=== PATIENT | female | born 1935 | race Caucasian/White ===

== ENCOUNTER 2020-12-03 19:38 | Emergency (ER) | payer MEDICARE, OTHER ==
[~2020-12-03 19:38] MED LIST: BENICAR *OUT OF20 MG PO; BYSTOLIC10 MG PO; CEFDINIR300 MG PO; CYMBALTA 30MG C30 MG PO; GLUCOTROL5 MG PO; HYDRALAZINE25 MG PO; LIPITOR40 MG PO; MOBIC7.5 MG PO; NEURONTIN100 MG PO; PLAVIX75 MG PO; PRILOSEC20 MG PO; SYNTHROID50 MCG PO; TOPROL XL 50 MG50 MG PO
[2020-12-03 20:30] LABS: BASOPHIL 0.5 % (0-2); EOSINOPHIL 1.4 % (0-7); HCT 36.4 % (37.0-47.0); HGB 11.3 g/dl (12.5-16.0); LYMPHOCYTE 16.7 % (15-48); MCH 33.3 pg (25.0-31.0); MCV 107.4 fL (78.0-100.0); MONOCYTE 7.7 % (0-12); MPV 10.6 fL (6.0-9.5); NEUTROPHIL 73.2 % (41-80); NRBC 0; PLT 207 K/uL (150-400); RBC 3.39 M/uL (4.20-5.40); RDW 11.6 % (11.5-14.0)
[2020-12-03 20:40] LABS: INR 0.98 (0.9-1.2); PROTHROMBIN TIME 12.3 SECONDS (11.4-13.6); PTT 28.1 SECONDS (22.2-34.7)
[2020-12-03 20:46] LABS: BUN/CREAT RATIO (CALC) 16.3 RATIO; CREATININE 2.15 mg/dL (0.51-0.95); POTASSIUM 4.3 mmol/L (3.5-5.1)
[2020-12-03] MEDS ORDERED: NORCO 5-325 TA1 EACH PO (22:13)
== END 2020-12-03 22:45 | disposition home or self-care (01) ==
LOC: FER 19:38
PROVIDERS: Emergency Medicine Emergency Medical Services
DX: S51.812A Laceration without foreign body of left forearm, initial encounter (principal); I10 Essential (primary) hypertension; I25.2 Old myocardial infarction; E11.9 Type 2 diabetes mellitus without complications; E03.9 Hypothyroidism, unspecified; Z87.442 Personal history of urinary calculi; Z79.02 Long term (current) use of antithrombotics/antiplatelets; Z88.8 Allergy status to other drugs, medicaments and biological substances; Z79.899 Other long term (current) drug therapy; Z79.82 Long term (current) use of aspirin; Z79.84 Long term (current) use of oral hypoglycemic drugs; W18.09XA Striking against other object with subsequent fall, initial encounter
CPT/HCPCS: 36415; 70450; 72125; 73090; 73110; 73130; 80048; 85025; 85610; 85730

== ENCOUNTER 2021-10-26 01:07 | Inpatient (IN) | payer MEDICARE, OTHER ==
[~2021-10-26] VITALS: Ht 163 cm; Wt 60.0 kg
[~2021-10-26 01:07] MED LIST changes: +NORCO 5-325 TA1 EACH PO
[2021-10-26 02:52] LABS: BASOPHIL 0.2 % (0-2); EOSINOPHIL 0.7 % (0-7); HCT 35.6 % (37.0-47.0); HGB 11.4 g/dl (12.5-16.0); LYMPHOCYTE 8.6 % (15-48); MCH 33.9 pg (25.0-31.0); MPV 10.8 fL (6.0-9.5); NEUTROPHIL 85.9 % (41-80); NRBC 0; PLT 170 K/uL (150-400); RBC 3.36 M/uL (4.20-5.40); RDW 12.4 % (11.5-14.0); WBC 12.4 K/uL (4.0-10.5)
[2021-10-26 03:02] LABS: INR 0.9 (0.9-1.2); PROTHROMBIN TIME 11.6 SECONDS (11.8-13.4); PTT 23.1 SECONDS (24.4-34.7)
[2021-10-26 03:11] LABS: BUN/CREAT RATIO (CALC) 22.7 RATIO; CREATININE 2.29 mg/dL (0.51-0.95); POTASSIUM 4.6 mmol/L (3.5-5.1)
[2021-10-26 06:52] LABS: BILIRUBIN NEGATIVE (NEGATIVE); BLOOD NEGATIVE Ery/uL (NEGATIVE); CLARITY CLEAR (CLEAR); COLOR YELLOW (YELLOW); GLUCOSE (U) NORMAL (NORMAL); LEUKOCYTES TRACE Leu/uL (NEGATIVE); NITRITE NEGATIVE (NEGATIVE); PROTEIN NEGATIVE (NEGATIVE); UROBILINOGEN 0.2 mg/dL (0.2-1.0); pH 5.5 (5.0-9.0)
[2021-10-26] MEDS ORDERED: ACETAMINOPHEN500 M1 PO (16:29)
[2021-10-26] MEDS ORDERED: ASPIRIN EC81 MG PO (16:30)
[2021-10-26] MEDS ORDERED: CYMBALTA 30MG C30 MG PO (16:33)
[2021-10-26] MEDS ORDERED: LASIX20 MG PO (16:34)
[2021-10-26] MEDS ORDERED: PRILOSEC20 MG PO (16:38)
[2021-10-26] MEDS ORDERED: DITROPAN5 MG PO (16:39)
[2021-10-26] MEDS ORDERED: CLARITIN10 MG PO (16:39)
[2021-10-26] MEDS ORDERED: TOPROL XL 50 MG50 MG PO (16:40)
[2021-10-26] MEDS ORDERED: AZO URINARY P99.5 MG PO (16:41)
--- NOTE | 2021-10-26 16:49 | NUR ---
NOTIFIED OF PATIENT ELEVATED BP. PATIENT HAS NOT TAKEN BP MEDICATIONS TODAY.
[2021-10-27 06:32] LABS: HCT 35.5 % (37.0-47.0); HGB 11.2 g/dl (12.5-16.0); MCH 34.3 pg (25.0-31.0); MCHC 31.5 g/dL (32.0-36.0); MCV 108.6 fL (78.0-100.0); MPV 10.8 fL (6.0-9.5); RBC 3.27 M/uL (4.20-5.40); RDW 12.5 % (11.5-14.0); RETICULOCYTE COUNT 1.8 % (1.0-2.0); WBC 8.4 K/uL (4.0-10.5)
[2021-10-27 06:47] LABS: IRON % SATURATION 11.4 %SAT (20-50)
[2021-10-27 07:23] LABS: BUN/CREAT RATIO (CALC) 17.7 RATIO; CREATININE 2.32 mg/dL (0.51-0.95); POTASSIUM 4.8 mmol/L (3.5-5.1)
[2021-10-28 07:00] LABS: BASOPHIL 0.5 % (0-2); EOSINOPHIL 4.4 % (0-7); HCT 33.1 % (37.0-47.0); HGB 10.5 g/dl (12.5-16.0); LYMPHOCYTE 14.3 % (15-48); MCH 34.5 pg (25.0-31.0); MCHC 31.7 g/dL (32.0-36.0); MCV 108.9 fL (78.0-100.0); MONOCYTE 6.2 % (0-12); MPV 10.8 fL (6.0-9.5); NEUTROPHIL 74.1 % (41-80); NRBC 0; PLT 147 K/uL (150-400); RBC 3.04 M/uL (4.20-5.40); RDW 12.6 % (11.5-14.0); WBC 6.6 K/uL (4.0-10.5)
[2021-10-28 07:20] LABS: BUN/CREAT RATIO (CALC) 16.9 RATIO; CREATININE 2.42 mg/dL (0.51-0.95)
[2021-10-28 09:20] LABS: URINE CREATININE 80.92 mg/dL (29.00-226.00)
[2021-10-30 05:56] LABS: BASOPHIL 0.3 % (0-2); EOSINOPHIL 0.5 % (0-7); HGB 8.8 g/dl (12.5-16.0); LYMPHOCYTE 9.7 % (15-48); MCH 34.2 pg (25.0-31.0); MCHC 31.4 g/dL (32.0-36.0); MCV 108.9 fL (78.0-100.0); MONOCYTE 9.6 % (0-12); MPV 10.3 fL (6.0-9.5); NEUTROPHIL 79.2 % (41-80); NRBC 0; PLT 153 K/uL (150-400); RBC 2.57 M/uL (4.20-5.40); RDW 12.2 % (11.5-14.0); WBC 7.4 K/uL (4.0-10.5)
[2021-10-30 06:19] LABS: BUN/CREAT RATIO (CALC) 22.5 RATIO; CREATININE 1.87 mg/dL (0.51-0.95); POTASSIUM 5.3 mmol/L (3.5-5.1)
--- NOTE | 2021-10-30 11:45 | NUR ---
SPOKE WITH PT REGARDING [facility] FACILITIES. SHE STATED THT SHE FELT SHE NEEDED THERAPY, BUT WAS UNSURE OF WHICH FACILITY. SHE ASKED ME TO CONTACT HER SON TO WHICH FACILITY. TC TO [facility], HE STATED THAT HE WOULD LIKE TO TRY [facility] HIS FRIST CHOICE.
[2021-10-31 07:44] LABS: BUN/CREAT RATIO (CALC) 22.8 RATIO; CREATININE 2.24 mg/dL (0.51-0.95); MAGNESIUM 1.9 mg/dL (1.8-2.4); POTASSIUM 4.6 mmol/L (3.5-5.1)
[2021-10-31 07:47] LABS: BASOPHIL 0.3 % (0-2); EOSINOPHIL 2.8 % (0-7); HCT 28.1 % (37.0-47.0); HGB 8.7 g/dl (12.5-16.0); LYMPHOCYTE 10.8 % (15-48); MCH 33.7 pg (25.0-31.0); MCV 108.9 fL (78.0-100.0); MONOCYTE 8.4 % (0-12); MPV 10.9 fL (6.0-9.5); NEUTROPHIL 76.8 % (41-80); NRBC 0; PLT 153 K/uL (150-400); RBC 2.58 M/uL (4.20-5.40); RDW 12.4 % (11.5-14.0); WBC 7.9 K/uL (4.0-10.5)
--- NOTE | 2021-10-31 11:05 | NUR ---
ALISON FROM [facility] IS ACCEPTED AT [facility]. ADVISED PT. THAT [facility] HAS ACCEPTED HER AND SHE IS IN AGREEMENT.
--- NOTE | 2021-10-31 11:48 | NUR ---
[facility] - REPORT NUMBER IS [phone] FAX NUMBER FOR D/C SUMMARY IS [phone]
--- NOTE | 2021-10-31 12:41 | NUR ---
TC EDWARD JIMENEZ HE WAS IN AGREEMENT TO ACCEPT [facility] FOR [facility] FOR HIS MOTHER. ADVISED HIM OF THE CHOICE FORM AND LEFT COPY IN PT. ROOM.
[2021-11-01 06:27] LABS: BASOPHIL 0.1 % (0-2); EOSINOPHIL 2.5 % (0-7); HCT 26.3 % (37.0-47.0); HGB 8.1 g/dl (12.5-16.0); LYMPHOCYTE 10.8 % (15-48); MCH 33.5 pg (25.0-31.0); MCHC 30.8 g/dL (32.0-36.0); MCV 108.7 fL (78.0-100.0); MONOCYTE 8.6 % (0-12); MPV 10.6 fL (6.0-9.5); NEUTROPHIL 77.3 % (41-80); NRBC 0; PLT 160 K/uL (150-400); RBC 2.42 M/uL (4.20-5.40); RDW 12.4 % (11.5-14.0); WBC 6.8 K/uL (4.0-10.5)
[2021-11-01] MEDS ORDERED: OXYCODONE-ACET1 EAC1 PO ×2 (12:09→12:22)
[2021-11-01] MEDS ORDERED: ONDANSETRON ODT4 MG PO (12:09)
== END 2021-11-01 14:30 | DRG 522 ==
LOC: FER 01:07 → FOFB 08:02 → FMS 08:02 → FSDC 14:41 → FMS 16:05
PROVIDERS: Emergency Medicine Emergency Medical Services; Internal Medicine; Nurse Practitioner Acute Care; Orthopaedic Surgery; ADMIT Internal Medicine
PROC: 0SRR01A Replacement of Right Hip Joint, Femoral Surface with Metal Synthetic Substitute, Uncemented, Open Approach (ICD-10-PCS; principal; 2021-10-29 11:30)
DX: S72.011A Unspecified intracapsular fracture of right femur, initial encounter for closed fracture (principal); N17.9 Acute kidney failure, unspecified; N18.4 Chronic kidney disease, stage 4 (severe); D62 Acute posthemorrhagic anemia; I16.0 Hypertensive urgency; I13.10 Hypertensive heart and chronic kidney disease without heart failure, with stage 1 through stage 4 chronic kidney disease, or unspecified chronic kidney disease; E11.22 Type 2 diabetes mellitus with diabetic chronic kidney disease; Z20.822 Contact with and (suspected) exposure to COVID-19; W01.0XXA Fall on same level from slipping, tripping and stumbling without subsequent striking against object, initial encounter; I25.10 Atherosclerotic heart disease of native coronary artery without angina pectoris; D53.9 Nutritional anemia, unspecified; R94.31 Abnormal electrocardiogram [ECG] [EKG]; I35.1 Nonrheumatic aortic (valve) insufficiency; I44.7 Left bundle-branch block, unspecified; R01.1 Cardiac murmur, unspecified; F41.9 Anxiety disorder, unspecified; E78.5 Hyperlipidemia, unspecified; R55 Syncope and collapse; G47.00 Insomnia, unspecified; E03.9 Hypothyroidism, unspecified; M19.90 Unspecified osteoarthritis, unspecified site; Z95.5 Presence of coronary angioplasty implant and graft; Z79.02 Long term (current) use of antithrombotics/antiplatelets; Z79.82 Long term (current) use of aspirin; Z79.899 Other long term (current) drug therapy; Z88.8 Allergy status to other drugs, medicaments and biological substances; Z79.84 Long term (current) use of oral hypoglycemic drugs; I25.2 Old myocardial infarction; Z95.818 Presence of other cardiac implants and grafts
CPT/HCPCS: 36415; 71045; 72170; 73501; 73552; 73590; 76000; 80048; 81003; 82570; 82607; 82728; 82962; 83540; 83550; 83735; 83880; 84300; 84439; 84443; 85025; 85610; 85730; 86850; 86900; 86901; 93005; 94010; 94760; 97162; 97166; 97530-GP; 97535; C1776; J0171; J0360; J0697; J1170; J1650; J2270; J2370; J2405; J2704; J2795; J2916; J3010; J7030; J7120; U0002

== ENCOUNTER 2022-05-26 16:14 | Day surgery (SDCO) | payer MEDICARE, OTHER ==
[~2022-05-26] VITALS: Ht 162.6 cm; Wt 57.2 kg
[~2022-05-26 16:14] MED LIST changes: +ACETAMINOPHEN500 M1 PO; +ASPIRIN EC81 MG PO; +AZO URINARY P99.5 MG PO; +CLARITIN10 MG PO; +DITROPAN5 MG PO; +LASIX20 MG PO; +ONDANSETRON ODT4 MG PO; +OXYCODONE-ACET1 EAC1 PO
[2022-05-26 17:28] LABS: BASOPHIL 0.6 % (0-2); EOSINOPHIL 2.9 % (0-7); HCT 37.2 % (37.0-47.0); LYMPHOCYTE 25.6 % (15-48); MCH 33.1 pg (25.0-31.0); MCHC 32.3 g/dL (32.0-36.0); MCV 102.8 fL (78.0-100.0); MONOCYTE 11.1 % (0-12); MPV 10.6 fL (6.0-9.5); NEUTROPHIL 59.6 % (41-80); NRBC 0; PLT 217 K/uL (150-400); RBC 3.62 M/uL (4.20-5.40); RDW 12.4 % (11.5-14.0); WBC 5.1 K/uL (4.0-10.5)
[2022-05-26 17:46] LABS: ALBUMIN 3.7 g/dL (3.4-5.0); BILIRUBIN - TOTAL 0.4 mg/dL (0.2-1.0); CREATININE 2.05 mg/dL (0.51-0.95); GLOBULIN (CALCULATION) 3.1 g/dL; POTASSIUM 3.8 mmol/L (3.5-5.1); TOTAL PROTEIN 6.8 g/dL (6.4-8.2)
[2022-05-26 17:49] LABS: BILIRUBIN NEGATIVE (NEGATIVE); BLOOD NEGATIVE Ery/uL (NEGATIVE); CLARITY CLEAR (CLEAR); COLOR YELLOW (YELLOW); GLUCOSE (U) NORMAL (NORMAL); LEUKOCYTES 2+ Leu/uL (NEGATIVE); NITRITE POSITIVE (NEGATIVE); PROTEIN NEGATIVE (NEGATIVE); UROBILINOGEN 0.2 mg/dL (0.2-1.0)
[2022-05-26 18:18] LABS: BACTERIA 2+
[2022-05-26] MEDS ORDERED: MOBIC7.5 MG PO (21:33)
[2022-05-26] MEDS ORDERED: ZESTRIL5 MG PO (21:35)
[2022-05-27 06:58] LABS: HCT 34.2 % (37.0-47.0); HGB 11.1 g/dl (12.5-16.0); MCH 33.2 pg (25.0-31.0); MCHC 32.5 g/dL (32.0-36.0); MCV 102.4 fL (78.0-100.0); MPV 10.5 fL (6.0-9.5); RBC 3.34 M/uL (4.20-5.40); RDW 12.4 % (11.5-14.0)
[2022-05-27 07:21] LABS: BUN/CREAT RATIO (CALC) 21.4 RATIO; CREATININE 1.82 mg/dL (0.51-0.95); POTASSIUM 3.5 mmol/L (3.5-5.1)
--- NOTE | 2022-05-27 16:12 | NUR ---
05/27/22 Ms. Jones lives at [facility]. She had 5 children, 3 are living. A son and dtr-in-law are supportive. She receives [employer] meals. Ms. Jones uses [employer] and her son for transportation. - Ms. Jones reports difficulty with house keeping. She was referred to [facility].
[2022-05-28 07:41] LABS: BASOPHIL 0.6 % (0-2); EOSINOPHIL 3.8 % (0-7); HCT 34.7 % (37.0-47.0); LYMPHOCYTE 23.6 % (15-48); MCH 32.4 pg (25.0-31.0); MCHC 31.7 g/dL (32.0-36.0); MCV 102.4 fL (78.0-100.0); MONOCYTE 10.5 % (0-12); MPV 10.4 fL (6.0-9.5); NEUTROPHIL 61.1 % (41-80); NRBC 0; PLT 200 K/uL (150-400); RBC 3.39 M/uL (4.20-5.40); RDW 12.3 % (11.5-14.0); WBC 5.3 K/uL (4.0-10.5)
[2022-05-28 08:17] LABS: ALBUMIN 3.4 g/dL (3.4-5.0); BILIRUBIN - TOTAL 0.4 mg/dL (0.2-1.0); BUN/CREAT RATIO (CALC) 23.7 RATIO; CREATININE 1.94 mg/dL (0.51-0.95); MAGNESIUM 1.8 mg/dL (1.8-2.4); POTASSIUM 3.9 mmol/L (3.5-5.1); TOTAL PROTEIN 6.4 g/dL (6.4-8.2)
[2022-05-29 07:02] LABS: BASOPHIL 0.6 % (0-2); EOSINOPHIL 2.8 % (0-7); HCT 33.8 % (37.0-47.0); LYMPHOCYTE 19.2 % (15-48); MCH 33.5 pg (25.0-31.0); MCHC 32.5 g/dL (32.0-36.0); MONOCYTE 10.1 % (0-12); MPV 10.7 fL (6.0-9.5); NRBC 0; PLT 206 K/uL (150-400); RBC 3.28 M/uL (4.20-5.40); WBC 7.1 K/uL (4.0-10.5)
[2022-05-29 07:19] LABS: BUN/CREAT RATIO (CALC) 26.7 RATIO; CREATININE 2.02 mg/dL (0.51-0.95)
[2022-05-29] MEDS ORDERED: CEFDINIR300 MG PO (11:18)
[2022-05-29] MEDS ORDERED: MIRALAX17 GM PO (11:18)
[2022-05-29] MEDS ORDERED: HYDRALAZINE25 MG PO (11:18)
[2022-05-29] MEDS ORDERED: LIDOCAINE 5% P1 EACH TOP (11:24)
--- NOTE | 2022-05-29 12:18 | NUR ---
05/29/22 Ms. 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 A referral was made to [facility] as they discharged her in Nov 2021. A referral was made to [facility] for a rollator.
== END 2022-05-29 14:39 | disposition home health service (06) ==
LOC: FER 16:14 → FMS 19:07
PROVIDERS: Emergency Medicine; Nurse Practitioner; Nurse Practitioner Acute Care; ADMIT Internal Medicine
DX: I16.1 Hypertensive emergency (principal); N30.00 Acute cystitis without hematuria; R55 Syncope and collapse; I13.0 Hypertensive heart and chronic kidney disease with heart failure and stage 1 through stage 4 chronic kidney disease, or unspecified chronic kidney disease; E11.22 Type 2 diabetes mellitus with diabetic chronic kidney disease; N18.4 Chronic kidney disease, stage 4 (severe); I50.9 Heart failure, unspecified; R94.31 Abnormal electrocardiogram [ECG] [EKG]; E03.9 Hypothyroidism, unspecified; E78.5 Hyperlipidemia, unspecified; I25.2 Old myocardial infarction; I25.10 Atherosclerotic heart disease of native coronary artery without angina pectoris; R07.81 Pleurodynia; R58 Hemorrhage, not elsewhere classified; Z88.8 Allergy status to other drugs, medicaments and biological substances; Z20.822 Contact with and (suspected) exposure to COVID-19; Z79.01 Long term (current) use of anticoagulants; Z79.82 Long term (current) use of aspirin; Z91.81 History of falling
CPT/HCPCS: 36415; 70450; 71045; 73620; 80048; 80053; 81001; 83036; 83735; 84145; 84484; 85025; 87076; 87088; 87186; 93005; 94010; 97162; 97166; 97530-GP; G0378; J0696; J1650; J7040; U0002